=== PATIENT | female | born 1995 | race Caucasian/White ===

== ENCOUNTER 2020-01-18 00:05 | Emergency (ER) | payer MEDICAID, SELFPAY ==
[2020-01-18] MEDS ORDERED: Lidocaine 1% w/Epinephrine 1:100K 20 ML VIAL ONE (01:25)
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
[2020-01-18] MEDS ORDERED: Ampicillin/Sulbactam 3 GM VIAL ONE (10:18)
== END 2020-01-18 01:46 | disposition home or self-care (01) ==
LOC: MADERS 00:05
DX: S01.81XA Laceration without foreign body of other part of head, initial encounter (principal); S80.02XA Contusion of left knee, initial encounter; S80.01XA Contusion of right knee, initial encounter; F43.10 Post-traumatic stress disorder, unspecified; G47.00 Insomnia, unspecified; F41.9 Anxiety disorder, unspecified; F32.9 Major depressive disorder, single episode, unspecified; F17.290 Nicotine dependence, other tobacco product, uncomplicated; Z79.899 Other long term (current) drug therapy; V49.9XXA Car occupant (driver) (passenger) injured in unspecified traffic accident, initial encounter
CPT/HCPCS: 12001; 70450; 72125; J0295; J1642

== ENCOUNTER 2020-12-09 17:46 | Emergency (ER) | payer SELFPAY ==
[2020-12-09 19:03] LABS: BHCG - Serum Negative (NEGATIVE); Pregs Control Background? CLEAR/WHITE (CLR/WHITE); Pregs Control Bar Appear? YES (CONTROL BAR)
[2020-12-10 12:36] LABS: HIV (1/2) Antibody/Antigen Non-Reactive (NonReactive); HIV 1/2 INDEX 0.16 S/CO (<1.00)
[2020-12-10 12:45] LABS: HBSAB Concentration Less than 8.00 mIU/mL; Hep B Core Total Ab Non-Reactive (NonReactive); Hep B Core Total Index 0.08 S/CO (0-0.79); Hep B Surf AB Non-Reactive (NonReactive); Hep C IgG Ab Non-Reactive (NonReactive); Hep C Index 0.22 S/CO (0-0.79)
[2020-12-11 22:12] LABS: Chlam.trachomatis by PCR,Urine Not Detected (NotDetected)
== END 2020-12-09 19:28 | disposition home or self-care (01) ==
LOC: MADERS 17:46
DX: Z20.2 Contact with and (suspected) exposure to infections with a predominantly sexual mode of transmission (principal); R00.0 Tachycardia, unspecified; G47.00 Insomnia, unspecified; F17.290 Nicotine dependence, other tobacco product, uncomplicated; Z85.89 Personal history of malignant neoplasm of other organs and systems; Z85.830 Personal history of malignant neoplasm of bone
CPT/HCPCS: 36415; 84703; 86704; 86706; 86803; 87389; 87491; 87591; 99283